=== PATIENT | male | born 1980 | race Caucasian/White ===

== ENCOUNTER 2022-03-27 10:20 | Emergency (ER) | payer OTHER, SELFPAY ==
[2022-03-27 10:25] VITALS: BP 143/82; PULSE 61; RESP 18; TEMP 36.4; O2SAT 98
--- NOTE | 2022-03-27 11:30 | ED.GENADULT ---
HPI - General Adult General Chief complaint: Unspecified Stated complaint: vasectomy complications Time Seen by Provider: 03/27/22 11:08 Source: patient Mode of arrival: ambulatory Limitations: no limitations History of Present Illness HPI narrative: 41-year-old male presenting to the emergency department for evaluation of scrotal swelling and concern of bleeding after a recent vasectomy. Patient states on March 03 he had a vasectomy done by Dr. Nelson. Patient did develop some scrotal swelling and was started on Bactrim on the . Patient had follow-up on Tuesday and then was started on doxycycline on Tuesday. Patient did feel that the swelling, while still significant, is beginning to improve. Last night patient did have an opening of the surgical incision and has had serosanguineous drainage from this. Patient states that the scrotum does feel less swollen than previously. Patient denies any worsening of his pain. Patient denies any fevers. Review of Systems Review of Systems: CONSTITUTIONAL: Denies fever, chills, or sweats. EYES: Denies visual changes, redness, or discharge. ENT: Denies rhinorrhea, congestion, sore throat, or otalgia. CARDIOVASCULAR: Denies chest pain, palpitations, or edema. RESPIRATORY: Denies cough or dyspnea. GASTROINTESTINAL: Denies abdominal pain, nausea, vomiting, or diarrhea. GENITOURINARY: See HPI SKIN: Denies rash or itching. MUSCULOSKELETAL: Denies back pain, joint pain, or myalgia. NEUROLOGIC: Denies headache, numbness, or weakness. Exam Narrative: APPEARANCE: Well appearing, no pain, no distress, well-nourished. HEAD: normocephalic, atraumatic. NECK: Supple. No adenopathy, no masses. RESPIRATORY: Airway patent, respirations nonlabored. Clear to auscultation bilaterally, no rales, rhonchi, wheezing. CARDIOVASCULAR: Regular rate and rhythm without murmurs rubs or gallops. genital: Scrotal swelling. 0.5 cm lesion on the scrotal raphe. Some granulation tissue and some serosanguineous discharge. No purulent discharge. No tenderness to palpation ABDOMINAL: Soft, nontender, nondistended, normal bowel sounds MUSCULOSKELETAL: Moves all extremities. Strength/ROM intact, No edema, No calf tenderness. NEURO: Alert. Cranial nerves II through XII intact. Good gait. Good coordination SKIN: Warm, dry. Normal Color Course Course Emergency Course: Dr. Chisholm was consulted and did see the patient in the emergency department. Vital Signs Vital signs: Vital Signs Temperature 97.5 F L 03/27/22 10:25 Pulse Rate 61 03/27/22 10:25 Respiratory Rate 18 03/27/22 10:25 Blood Pressure 143/82 H 03/27/22 10:25 Pulse Oximetry 98 03/27/22 10:25 Temperature 97.5 F L 03/27/22 10:25 Pulse Rate 61 03/27/22 10:25 Respiratory Rate 18 03/27/22 10:25 Blood Pressure 143/82 H 03/27/22 10:25 Pulse Oximetry 98 03/27/22 10:25 Medical Decision Making Vital Signs Vital Signs: Vital Signs Temperature 97.5 F L 03/27/22 10:25 Pulse Rate 61 03/27/22 10:25 Respiratory Rate 18 03/27/22 10:25 Blood Pressure 143/82 H 03/27/22 10:25 Pulse Oximetry 98 03/27/22 10:25 Temperature 97.5 F L 03/27/22 10:25 Pulse Rate 61 03/27/22 10:25 Respiratory Rate 18 03/27/22 10:25 Blood Pressure 143/82 H 03/27/22 10:25 Pulse Oximetry 98 03/27/22 10:25 Discharge Plan Discharge Clinical Impression: Scrotal swelling, Drainage from surgical wound Patient Disposition: Home, Self-Care Condition: Stable Instructions: Antibiotic Form Additional Instructions: Continue to take your doxycycline. Have close follow-up with Dr. Nelosn during the week. If you have any worsening symptoms or if you have any questions or concerns then please call or return to the emergency department Follow-up/Referrals: Anton Nelson MD [Primary Care Provider] -
--- NOTE | 2022-04-01 07:08 | P.CONUR_ITS ---
Assessment and Plan Assessment and plan (1) Scrotal hematoma: Code(s): S30.22XA - Contusion of scrotum and testes, initial encounter Status: Acute Assessment and Plan: * Reassured patient about the healthy tissue at his cecectomy incision site. * His scrotal hematoma is resolving as expected. I reassured the patient. Urology Consult Note HPI Date Seen: 04/01/22 Primary Care Provider: Anton Nelson MD Consult Narrative Narrative: Jorgito Baltazar is a 41 year old male who is status post cecectomy proximally 3 weeks ago by my partner Dr. Nelson. He has had a slight postoperative hematoma and has been evaluated a couple times in the office following his procedure. He presented to the emergency department with some drainage from his small scrotal incision. Examination was consistent with a sm all wound separation with good healing tissue underneath. Review of Systems Cardiovascular: Cardiovascular: Denies chest pain, Denies lightheadedness, Denies palpitations and Denies dyspnea Respiratory: Respiratory: Denies dyspnea Gastrointestinal: Gastrointestinal: Denies diarrhea, Denies nausea and Denies vomiting Genitourinary: Genitourinary: Denies hematuria and Denies dysuria Endocrine: Endocrine: Denies palpitations Exam Const: General: no acute distress Resp: Effort & Inspection: normal respiratory effort GI: Inspection: non-distended GI Palp: No abdominal tenderness and No Guarding due to palpation present (GI) Auscultation: normal bowel sounds : Scrotum: ecchymosis (slight), scrotal swelling (mild) and other ( Very slight wound separation in the 1 cm anterior scrotal incision. )
== END 2022-03-27 12:11 | disposition home or self-care (01) ==
PROVIDERS: Emergency Provider Emergency Medicine; PCP Urology
DX: N99.840 Postprocedural hematoma of a genitourinary system organ or structure following a genitourinary system procedure (principal)
CPT/HCPCS: 99281